=== PATIENT | male | born 1970 | race Caucasian/White ===

== ENCOUNTER 2017-11-17 16:32 | Emergency (ER) | payer MEDICAID, OTHER, SELFPAY ==
[~2017-11-17] VITALS: Ht 185.4 cm; Wt 95.5 kg
[2017-11-17] MEDS ORDERED: SODIUM CHLORIDE FLUSH 10ML SYR IVF ONE (17:00)
[2017-11-17] MEDS ORDERED: LABETALOL 5MG/ML, 20ML IVPush ONE ×2 (17:00→18:30)
[2017-11-17 17:27] LABS: ALBUMIN 4.2 g/dL (3.4-5.0); ANION GAP 11 mmol/L (5-15); CALCIUM 9.1 mg/dL (8.5-10.1); CHLORIDE 106 mmol/L (98-107); CREATININE 0.98 mg/dL (0.7-1.3)
[2017-11-17 17:31] LABS: TROPONIN I < 0.015 ng/mL (0.000-0.045)
[2017-11-17] MEDS ORDERED: LABETALOL 5MG/ML, 20ML ONE (17:50)
[2017-11-17 19:07] LABS: MICROSCOPIC AUTO
[2017-11-17 19:11] LABS: CULTURE INDICATED? NO
[2017-11-17 19:52] VITALS: BP 155/103
== END 2017-11-17 19:55 | disposition home or self-care (01) ==
LOC: ED 19:49
DX: I16.9 Hypertensive crisis, unspecified (principal); R51 Headache
CPT/HCPCS: 36415; 71045; 80048; 81001; 82040; 84484; 93005; 96374; 96376